=== PATIENT | female | born 1970 | race Asian ===

== ENCOUNTER 2016-08-13 19:48 | Emergency (ER) | payer SELFPAY ==
[2016-08-13 19:57] VITALS: BP 153/85; PULSE 81; RESP 16; O2SAT 98
[2016-08-13 20:45] LABS: BASOPHILS % (AUTO) 0.1 % (0-3); EOSINOPHILS % (AUTO) 0.2 % (0-5); MONOCYTES % (AUTO) 0.8 % (4-12); Mean Corpuscular Hemoglobin 17.7 pg (27.0-35.0); Mean Corpuscular Volume 55.9 fL (81-100); NEUTROPHILS % (AUTO) 95.1 % (40-74); Platelet Count 341 bil/L (150-400)
--- NOTE | 2016-08-13 21:10 | ED.REPORT ---
HPI-Abd Pain F 40 and Over Date of Service Aug 13, 2016 ED Provider: Prince Davidson MD Patient is a 46 year old female presenting to the ED complaining of severe abdominal pain onset three hours ago. The patient is accompanied by a friend, who helped act as bariatric nurse. The patient arrived from [facility] this morning. The patient reported having diffuse abdominal pain in the lower region which radiated to her right flank and lower back. She states that she has nausea and dry heaving. The patient denies vomiting. History is limited by the patient's distress during initial evaluation. 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 Unable to Obtain Hx: Patient condition (limited by patient's severe pain) Arrived By: Walk-in Sudden in Onset?: Yes Onset Occurred: 1 - 4 hours ago Symptom Duration: Since onset Progression since Onset: Gradually worsening Location: : Abdomen lower Quality: Painful Severity: Current: Severe Severity: Maximum: Severe Recent Healthcare: No recent doctor visit, No recent hospitalization Similar Sx Previous: No Past Medical History Past Medical History none reported Past Surgical History none reported Smoking History Unknown if Ever Smoker Social History from [facility], arrived today Other Social History: Good social support, Visiting locally Ambulatory Status Independent Review of Systems Unable to Obtain ROS Patient condition (limited by patient's severe pain) Constitutional: Denies: Chills, Fever GI: Reports: Abdominal pain, Nausea, Denies: Vomiting Female: Reports: Flank pain Musculoskeletal: Reports: Back pain Physical Exam Vital Signs Vital Signs (First) Date Time Temp Pulse Resp B/P Pulse Ox O2 Delivery O2 Flow Rate FiO2 08/13/16 19:57 36.6 81 16 153/85 98 Room Air Initial VS: Reviewed, Vital signs normal General/Constitutional: Awake, Alert Distress / Hydration: Positive: Dehydration mild, Distress moderate Appearance / Presentation: Positive: Pale Respiratory / Chest: Breath sounds NL, Breath sounds = bilat, No respiratory distress, No rales, No rhonchi, No wheezing Cardiovascular: Regular rhythm, Heart sounds NL Heart Rate / Rhythm: Positive: Tachycardia Abdomen: Atraumatic Tenderness/Guarding/Rebound: Positive: Tender RLQ..., Tender RUQ..., Tender flank R Back: No midline vertebral tend Flank / Spine / Paraspinal: Positive: Flank tender R Head / Eyes: Atraumatic, Normocephalic, PERRL, EOMI ENT: Airway patent, Mucous membranes moist Skin: Atraumatic, Color NL, No rash, Warm, Dry Neurologic: Oriented X3, No motor deficits, No sensory deficits Neck: Atraumatic, Supple, Full range of motion Upper Extremity / MS: Atraumatic, Full range of motion, No deformity Lower Extremity / Pelvis / MS: Full range of motion, No deformity Interpretation & Diagnostics Interpretation & Diagnostics: Urine Test: Negative CT KUB Impression: mildly obstructive 3mm calculus just inside the bladder at the right ureterovesical junction. Additional 2 x 3 mm calculus in the right kidney. at 2204 Lab Results Interpretation Result Diagram: 08/13/16202408/13/162024 Test 08/13/16 20:25 08/13/16 21:00 White Blood Count 14.4th/mm3 (3.8-10.1) Red Blood Count 6.06mil/mm3 (3.90-5.20) Hemoglobin 10.7g/dL (12.0-15.6) Hematocrit 33.9% (35.0-46.0) Mean Corpuscular Volume 55.9fL (81-100) Mean Corpuscular Hemoglobin 17.7pg (27.0-35.0) Mean Corpuscular Hemoglobin Concent 31.6% (32.0-37.0) Red Cell Distribution Width 18.7% (12.3-15.4) Platelet Count 341bil/L (150-400) Neutrophils (%) (Auto) 95.1% (40-74) Lymphocytes (%) (Auto) 3.5% (14-46) Monocytes (%) (Auto) 0.8% (4-12) Eosinophils (%) (Auto) 0.2% (0-5) Basophils (%) (Auto) 0.1% (0-3) Sodium Level 135mEq/L (134-144) Potassium Level 3.5mEq/L (3.5-5.2) Chloride Level 98mEq/L (97-108) Carbon Dioxide Level 19mmol/L (18-29) Blood Urea Nitrogen 13mg/dL (6-24) Creatinine 0.55mg/dL (0.57-1.00) Estimat Glomerular Filtration Rate 170mL/min (>59) Glucose Level 328mg/dL (60-99) Calcium Level 9.0mg/dL (8.5-10.1) Magnesium Level 1.7mg/dL (1.6-2.6) Total Bilirubin 0.3mg/dL (0.0-1.2) Aspartate Amino Transf (AST/SGOT) 33U/L (0-50) Alanine Aminotransferase (ALT/SGPT) 11U/L (0-32) Alkaline Phosphatase 108U/L (25-150) Total Protein 7.7g/dL (6.4-8.4) Albumin 4.0g/dL (3.4-5.0) Lipase 29U/L (13-60) Hold Donnelly Top Tube Received (Received) Urine Color Straw (YELLOW) Urine Appearance Clear (CLEAR,HAZY) Urine pH 6.5 (5.0-8.0) Urine Specific [place] 1.015 (1.003-1.035) Urine Protein Negativemg/dL (NEG,TRACE) Urine Glucose (UA) 100mg/dL (NEGATIVE) Urine Ketones 15mg/dL (NEGATIVE) Urine Occult Blood Trace (NEGATIVE) Urine Nitrite Negative (NEGATIVE) Urine Bilirubin Negative (NEGATIVE) Urine Urobilinogen Normalmg/dL (NORMAL) Urine Leukocyte Esterase Negative (NEGATIVE) Urine RBC 0-2/hpf (0-2) Urine WBC 0-5/hpf (0-5) Urine Epithelial Cells Few/hpf (NONE-MOD) Urine Crystals None seen (NONE SEEN) Urine Bacteria Few/hpf (NONE-FEW) Urine Hyaline Casts None/lpf (NONE) Urine Granular Casts None seen (NONE SEEN) Urine Waxy Casts None seen (NONE SEEN) Urine Red Blood Cell Casts None seen (NONE SEEN) Urine White Blood Cell Casts None seen (NONE SEEN) Urine Mucus None seen (None Seen) Urine Trichomonas None seen (NONE SEEN) Urine Yeast None (NONE SEEN) Urinalysis Comment None Urine Culture Reflexed Not indicated Lab Results Interpretation: Elevated white blood count elevated nonfasting glucose. Re-Eval/Medical Decision Med Decision/Clinical Course 46-year-old female who complains of right flank pain. She is found to have a 3 mm kidney stone at the distal right UVJ. She got good pain relief. She will be discharged home with a urine strainer. Return as needed for persistent pain. Source of Hx: Old records Re-Evaluation/Progress #1: Time of Eval: 22:28 Re-Evaluation/Progress Note: Rechecked patient, who reports some relief from her pain. Discussed lab and CT results, plan for treatment. The patient understands and agrees to the plan for treatment. Re-Evaluation/Progress #2: Time of Eval: 23:00 Patient Status: Condition improved Re-Evaluation/Progress Note: Rechecked patient, who is now sleeping in the ED. She woke up easily and is pain free. Discussed plan for discharge. The patient understands and agrees to the plan for discharge. All questions were addressed. Counseled Regarding: Diagnosis, Lab results, Need for follow-up, When/why to return to ED Discharge & Departure Primary Impression: Ureterolithiasis Disposition: Home Discharge Condition All VS Reviewed: Yes Condition: Improved Patient Instructions: Renal Colic (ED) Additional Instructions: There is a small stone in the distal right ureter on the CT scan, almost ready to fall into the bladder. It should pass without difficulty because of its size. Strain the urine to see when it passes. Tylenol and/or ibuprofen as needed for pain. Drink plenty of fluids to help flush out the stone Referrals: [facility] Scribe Attestation Portions of this note were transcribed by Madeleine Leone and Marisa Oswald. I, Dr. Davidson personally performed the history, physical exam and medical decision-making; I reviewed and confirmed the accuracy of the information in the transcribed note. Signed by: Madeleine Leone and Marisa Oswald, Scribe, and [id number] copies to: [facility] Prince Davidson MD Aug 13, 2016 21:10 Anne Leone Aug 13, 2016 21:19 Marisa Oswald Aug 14, 2016 00:12
[2016-08-13] MEDS ORDERED: 0.9% Sodium Chloride 1,000 ML IV ONE (21:14)
[2016-08-13 21:15] LABS: Magnesium 1.7 mg/dL (1.6-2.6)
[2016-08-13 21:15] LABS: APPEARANCE,URINE CLEAR (CLEAR,HAZY); COLOR,URINE STRAW (YELLOW); OCCULT BLOOD,URINE TRACE (NEGATIVE); PH,URINE 6.5 (5.0-8.0); UROBILINOGEN,URINE NORMAL (NORMAL)
[2016-08-13] MEDS ORDERED: Ketorolac 15 mg/mL Inj IVPUSH ONE (21:15)
[2016-08-13] MEDS ORDERED: Ondansetron 2 mg/mL 2 mL Inj IVPUSH PRN (21:15)
[2016-08-13] MEDS ORDERED: HYDROmorphone 0.5 mg/0.5 mL iSecure Syringe IVPUSH PRN (21:15)
[2016-08-13 22:30] VITALS: BP 113/53; PULSE 83; RESP 18; O2SAT 99
[2016-08-13 23:56] VITALS: BP 118/60; PULSE 80; RESP 16; O2SAT 99
--- NOTE | 2016-08-14 06:02 | DRSVH ---
PROCEDURE: CT KUB ([id number]) INDICATIONS: right flank pain TECHNIQUE: Noncontrast 5 mm thick sections acquired from the diaphragms to the symphysis. 5 mm thick coronal an d sagittal reformats were then performed. For radiation dose reduction, the following was used: aut omated exposure control, adjustment of mA and/or kV according to patient size. COMPARISON: None. FINDINGS: Image quality: Excellent. Lung bases: Lung bases are clear. Heart size is normal. Urinary system: Mild enlargement of the right kidney, and there is mild right hydronephrosis and hyd roureter. 2 or 3 mm calculus seen at the right ureterovesical junction image 81, and 2 mm right renal calculus image 47. No left-sided urolithiasis. Other solid organs: Liver and spleen are normal in size. Gallbladder not seen either contracted or absent. Pancreas is normal in contours. No adrenal nodules. Peritoneum and bowel: Unenhanced bowel loops demonstrate normal wall thickness and caliber. No free fluid or air. Nodes and vessels: No retroperitoneal or mesenteric adenopathy by size criteria. Aorta and inferior vena cava are normal in caliber. Abdominal wall: Tiny fat containing umbilical hernia Pelvis: No free pelvic fluid. No inguinal hernias or adenopathy. Bones: No suspicious bony lesions. No vertebral body compression fractures. IMPRESSION: Mildly obstructive 3 mm calculus just inside the bladder at the right ureterovesical junction. Additi onal 2 x 3 mm calculus in the right kidney. Dictated by: Martínez Hernandez M.D. on 08/13/2016 at 22:00 Approved by: Martínez Hernandez M.D. on 08/13/2016 at 22:04
== END 2016-08-13 23:57 | disposition home or self-care (01) ==
LOC: SED 19:48
DX: N20.1 Calculus of ureter (principal)
CPT/HCPCS: 36415; 74176; 80053; 81000; 81025; 83690; 83735; 85025; 96361; 96374; 96375; 99285; J1170; J1885; J2405; J7030